=== PATIENT | male | born 1975 | race Native Hawaiian/Other Pacific Islander ===

== ENCOUNTER 2021-01-19 16:01 | Emergency (ER) | payer OTHER ==
[~2021-01-19] VITALS: Ht 182.9 cm; Wt 132.5 kg
[2021-01-19 16:10] VITALS: TEMP 99
[2021-01-19 16:33] LABS: PLATELET COUNT 264 K/uL (142-355)
[2021-01-19 16:39] LABS: POTASSIUM 4.2 mmol/L (3.6-5.2); SODIUM 139 mmol/L (136-145)
[2021-01-19 17:40] VITALS: BP 165/91
== END 2021-01-19 17:40 | disposition home or self-care (01) ==
LOC: ED 16:01
PROVIDERS: Hospitalist
DX: H60.8X2 Other otitis externa, left ear (principal); I16.0 Hypertensive urgency; J32.0 Chronic maxillary sinusitis; J32.2 Chronic ethmoidal sinusitis; F17.210 Nicotine dependence, cigarettes, uncomplicated
CPT/HCPCS: 36415; 80053; 82550; 83880; 84484; 85027; 85610; 85730; 93005; 96365; 96375; J0360; J0696; J1885; J2405

== ENCOUNTER 2021-04-07 14:09 | Outpatient (CLI) | payer OTHER | END 2021-04-07 20:02 | disposition home or self-care (01) | LOC: RAD 14:09 | PROVIDERS: ATTEND Nurse Practitioner Family | DX: Z03.89 Encounter for observation for other suspected diseases and conditions ruled out (principal) ==

== ENCOUNTER 2021-04-07 14:39 | Emergency (ER) | payer OTHER ==
[~2021-04-07] VITALS: Ht 182.9 cm; Wt 132.5 kg
[2021-04-07 15:00] VITALS: TEMP 99.2
[2021-04-07 18:05] LABS: PLATELET COUNT 229 K/uL (142-355)
[2021-04-07 18:12] LABS: POTASSIUM 4.2 mmol/L (3.6-5.2)
[2021-04-07 19:22] VITALS: BP 156/91
== END 2021-04-07 19:23 | disposition home or self-care (01) ==
LOC: ED 14:39
PROVIDERS: Hospitalist
DX: U07.1 COVID-19 (principal); J06.9 Acute upper respiratory infection, unspecified
CPT/HCPCS: 80053; 85027; 96372; 99283; J1100

== ENCOUNTER 2021-04-11 08:32 | Outpatient (CLI) | payer OTHER | END 2021-04-11 19:19 | disposition home or self-care (01) | LOC: INF 08:32 | PROVIDERS: ATTEND Family Medicine | DX: Z23 Encounter for immunization (principal); Z03.89 Encounter for observation for other suspected diseases and conditions ruled out; U07.1 COVID-19 | CPT/HCPCS: 96365 ==